=== PATIENT | female | born 1995 | race Caucasian/White ===

== ENCOUNTER 2016-10-24 08:41 | Emergency (ER) | payer OTHER ==
[2016-10-24 08:56] VITALS: BP 118/65
--- NOTE | 2016-10-24 09:12 | UC ---
Skin Complaint HPI - HPI Summary HPI Summary: rash on hands that is itchy, appears when she is at work. Pt is afraid of bugs and spiders, thinks it may be spider bites, but does not know why they show up when she is at work. States she has checked her bed for bedbugs and does not have them. States it has been coming and going for several days, possibly 2 weeks. Denies tick exposure. - History of Current Complaint Chief Complaint: UCRash Time Seen by Provider: 10/24/16 09:11 Stated Complaint: SKIN COMPLAINT Hx Obtained From: Patient Hx Last Menstrual Period: 10/23/16 ?: No Onset/Duration: Sudden Onset, Lasting Days, Still Present Timing: Intermittent Episodes Lasting: - days Onset Severity: Moderate Current Severity: Moderate Pain Intensity: 0 Pain Scale Used: 0-10 Numeric Location: Hand (Right), Hand (Left) Character: Pruritus, Redness, Raised Aggravating: Nothing Alleviating: Nothing Associated Signs & Symptoms: Positive: Rash. Negative: Red Streaks, Joint Swelling Related History: Insect Bite/Sting - possible - Allergy/Home Medications Allergies/Adverse Reactions: Allergies Allergy/AdvReac Type Severity Reaction Status Date / Time cold Allergy Hives Uncoded 10/24/16 08:56 Home Medications: Home Medications Tri-Herlinda O C 1 tab PO DAILY 10/24/16 [History Confirmed 10/24/16] Calamine/Pramoxine LOTION* [Caladryl LOTION*] 1 applic .SEE ORDER ONCE PRN 10/24 [History Confirmed 10/24/16] FLUoxetine CAP* [PROzac CAP*] 20 mg PO DAILY 10/24/16 [History Confirmed ] Review of Systems Constitutional: Negative Skin: Rash Eyes: Negative ENT: Negative Respiratory: Negative Cardiovascular: Negative Gastrointestinal: Negative Genitourinary: Negative Motor: Negative Neurovascular: Negative Musculoskeletal: Negative Neurological: Negative Psychological: Negative All Other Systems Reviewed And Are Negative: Yes PMH/Surg Hx/FS Hx/Imm Hx Previously Healthy: Yes - Surgical History Surgical History: None - Family History Known Family History: Positive: Hypertension - Social History Occupation: Employed Full-time Alcohol Use: None Substance Use Type: None Smoking Status (MU): Never Smoked Tobacco Physical Exam Triage Information Reviewed: Yes Appearance: Well-Appearing, No Pain Distress, Well-Nourished Vital Signs: Initial Vital Signs Temp 98.8 F 10/24/16 08:49 Pulse 78 10/24/16 08:49 Resp 20 10/24/16 08:49 BP 118/65 10/24/16 08:49 Vital Signs Reviewed: Yes Eyes: Positive: Conjunctiva Clear ENT: Positive: Normal ENT inspection Neck: Positive: Supple, Nontender, No Lymphadenopathy Respiratory: Positive: Lungs clear, Normal breath sounds, No respiratory distress Cardiovascular: Positive: RRR, No Murmur, Pulses Normal, Brisk Capillary Refill Musculoskeletal: Positive: Strength Intact, ROM Intact Neurological: Positive: Alert, Muscle Tone Normal Psychological Exam: Normal Skin: Positive: rashes - on bilat hands and left forearm, raised, red, indurated Course/Dx - Course Course Of Treatment: Rash looks most like insect bites to me. Pt had googled scabies and is concerned about this. It does not look like scabies, but because pt is concerned, will prescribe the one time treatment. Will also treat it as allergic reaction to the insect bites and encourage pt to seek derm follow up if no improvement. Also advised her to "flea bomb" her room. Denies tick exposure, will not test for Lyme disease at this time. - Differential Diagnoses - Skin Complaint Differential Diagnoses: Allergic Reaction, Cellulitis, Contact Dermatitis, Scabies - Diagnoses Provider Diagnoses: allergic reaction to insect bites Discharge - Discharge Plan Condition: Stable Disposition: HOME Prescriptions: Famotidine TAB 40 MG(NF) [Pepcid TAB 40 MG(NF)] 40 mg PO DAILY #10 tab Permethrin [Elimite] 5 % TOPICAL ONCE #1 tube Triamcinolone 0.1% CREAM (NF) [Kenalog 0.1% Cream (NF)] 1 applic TOPICAL BID # 15 gm predniSONE TAB* [Deltasone TAB*] 40 mg PO DAILY #10 tab Patient Education Materials: General Allergic Reaction (ED) Forms: *Work Release Referrals: Patricia Holt PA [Primary Care Provider] - Alphonso Fuller MD [Medical Doctor] - Alphonso Fuller MD [Medical Doctor] - (follow up with the mainframe systems engineer in 3- 5 days if no improvement)
== END 2016-10-24 09:42 | disposition home or self-care (01) ==
LOC: UCCORT 08:41
DX: T63.481A Toxic effect of venom of other arthropod, accidental (unintentional), initial encounter (principal); L23.89 Allergic contact dermatitis due to other agents; Z91.09 Other allergy status, other than to drugs and biological substances
CPT/HCPCS: 99212; G0463